=== PATIENT | male | born 1970 | race Native Hawaiian/Other Pacific Islander ===

== ENCOUNTER 2020-04-20 08:54 | Outpatient (CLI) | payer OTHER | END 2020-04-20 20:38 | disposition home or self-care (01) | LOC: RAD 08:54 | PROVIDERS: ATTEND Registered Nurse | DX: Z01.818 Encounter for other preprocedural examination (principal) ==

== ENCOUNTER 2022-06-20 11:24 | Outpatient (CLI) | payer OTHER | END 2022-06-20 20:57 | disposition home or self-care (01) | LOC: CT 11:24 | PROVIDERS: ATTEND Nurse Practitioner | DX: Z13.6 Encounter for screening for cardiovascular disorders (principal) ==